=== PATIENT | female | born 2000 | race Caucasian/White ===

== ENCOUNTER 2020-10-18 14:35 | Observation (INO) ==
[2020-10-18 14:57] VITALS: BMI 32.1
[2020-10-18] MEDS ORDERED: MORPHINE SULFATE INJ 4 MG IVP ONE (15:28)
[2020-10-18] MEDS ORDERED: ZOFRAN INJ 4 MG VIAL IVP ONE (15:28)
[2020-10-18] MEDS ORDERED: ZOFRAN INJ 4 MG VIAL ONE ×2 (15:30→19:16)
[2020-10-18] MEDS ORDERED: MORPHINE SULFATE INJ 4 MG ONE (15:30)
--- NOTE | 2020-10-18 15:43 | ED.ABDFE ---
HPI Time Seen Time Seen by Provider: 10/18/20 15:28 PCP Primary Care Physician: GAIL WALTER HPI Comment HPI Comment: c/o abd pain. ongoing w/u for GB issues. s/p marginal US and HIDA. PCP asked pt to come here instead of [facility]. no gen surg referral yet. Complaint Chief Complaint:: PT C/O ABD PAIN N/V/D FOR A YEAR AND SHE HAS AN EXACERBATION FOR THE PAST 3 WEEKS ( PT WENT TO SEE PCP THIS AM AND PT WAS TOLD TO COME TO [facility]) ( PTS PAIN IS EPIGASTRIC AND UPPER SHOULDER BLADES, PTS PAIN IS CONSTANT AND BREATHING MAKES PAIN WORSE AND HE PAIN IS A 10 .. ,BR Self Treatment fo Chief Complaint: PT'S MOTHER GIVEN HX ..BR COVID-19 Coronavirus risk:travel/contact w/high risk person: No Has patient experienced Coronavirus symptoms: No Reviewed Nurses Notes Review: Yes Mode of arrival Mode of Arrival: Ambulatory Timing Onset of Chief Complaint: 10/05/20 PMH PMH Past Medical History: No Past Surgical History: No Family History History of Family Medical Conditions: No Social History Does patient currently use any type of tobacco product: No Have you used tobacco products in the last 12 months: No Type of Tobacco Use: None Does any household member use tobacco: No Alcohol Use: None Do you use any recreational Drugs:: No Lives With: Family Lives Where: Home Travel Risk Coronavirus risk:travel/contact w/high risk person: No Has patient experienced Coronavirus symptoms: No Infectious screening In the last 2 months have you had wt loss of >10#?: NO Have you had fever, night sweats or hemotysis?: No Have you traveled outside the country in the last 6 months?: No Isolation: Standard ROS Review of Systems Constitutional: No Symptoms Reported Eyes: No Symptoms Reported ENTM: No Symptoms Reported Respiratoy: No Symptoms Reported Cardiovascular: No Symptoms Reported Gastrointestinal/Abdominal: See HPI, Abdominal Pain and Nausea Genitourinary: No Symptoms Reported Neurological: No Symptoms Reported Musculoskeletal: No Symptoms Reported Integumentary: No Symptoms Reported Hematologic/Lymphatic: No Symptoms Reported Endocrine: No Symptoms Reported All Other Systems: Reviewed and Negative PE Vital Signs Vitals: Temperature 98.1 F Pulse Rate 93 Respiratory Rate 18 Blood Pressure 114/58 O2 Sat by Pulse Oximetry 98 General Limitations: No Limitations General Appearance: Alert, Anxious and In Distress Head Head Exam: Normal Inspection, Atraumatic and Normocephalic Eyes Eye exam: Normal Appearance ENT ENT Exam: Normal Exam Neck Neck Exam: Normal Inspection Respiratory Respiratory Exam: Normal Lung Sounds Bilat Abdominal Exam Abdominal Exam: Normal Inspection, Normal Bowel Sounds, Soft and Tenderness; negative Distention and Guarding Back Back Exam: Normal Inspection and Full ROM Extremeties Extremities Exam: Normal Inspection and Full ROM Neurologic Neurological Exam: Alert, Oriented X3 and CN II-XII Intact Skin Skin Exam: Warm, Dry and Intact COURSE Education/Counseling Education/Counseling: Patient and Family ROR Labs Reviewed Laboratory Results Reviewed?: Yes Result Diagrams: 10/18/20 15:36 10/18/20 15:36 Laboratory: WBC 7.4 X10^3/uL (3.6-10.0) 10/18/20 15:36 RBC 4.51 X10^6/uL (3.5-5.4) 10/18/20 15:36 Hgb 13.8 g/dL (12.0-16.0) 10/18/20 15:36 Hct 39.5 % (36.0-47.0) 10/18/20 15:36 MCV 87.5 fL (80.0-100.0) 10/18/20 15:36 MCH 30.5 pg (27.0-34.0) 10/18/20 15:36 MCHC 34.8 g/dL (33.0-35.0) 10/18/20 15:36 RDW 12.7 % (11.6-16.5) 10/18/20 15:36 Plt Count 248 X10^3/uL (150.0-450.0) 10/18/20 15:36 MPV 7.8 fL (7.4-11.0) 10/18/20 15:36 Neut % (Auto) 65.1 % (42.0-75.0) 10/18/20 15:36 Lymph % (Auto) 25.6 % (21.0-51.0) 10/18/20 15:36 [place] % (Auto) 7.4 % (0.0-13.0) 10/18/20 15:36 Eos % (Auto) 1.4 % (0.9-2.9) 10/18/20 15:36 Baso % (Auto) 0.5 % (0.2-1.0) 10/18/20 15:36 Neut # (Auto) 4.8 x10^3/uL (2.2-4.8) 10/18/20 15:36 Lymph # (Auto) 1.9 X10^3/uL (1.3-2.9) 10/18/20 15:36 [place] # (Auto) 0.5 x10^3/uL (0.3-0.8) 10/18/20 15:36 Eos # (Auto) 0.1 x10^3/uL (0.0-0.2) 10/18/20 15:36 Baso # (Auto) 0.0 X10^3/uL (0.0-0.1) 10/18/20 15:36 Absolute Nucleated RBC 0.1 /100WBC 10/18/20 15:36 Sodium 140 mmol/L (136-145) 10/18/20 15:36 Corrected Sodium TNP 10/18/20 15:36 Potassium 3.6 mmol/L (3.5-5.1) 10/18/20 15:36 Chloride 104 mmol/L (98-107) 10/18/20 15:36 Carbon Dioxide 25.2 mmol/L (21-32) 10/18/20 15:36 BUN 12 mg/dL (7-18) 10/18/20 15:36 Creatinine 0.88 mg/dL (0.55-1.02) 10/18/20 15:36 Est GFR (MDRD) Af Amer > 60 (>60) 10/18/20 15:36 Est GFR (MDRD) Non-Af > 60 (>60) 10/18/20 15:36 Glucose 80 mg/dL (65-99) 10/18/20 15:36 Calcium 9.3 mg/dL (8.5-10.1) 10/18/20 15:36 Corrected Calcium TNP 10/18/20 15:36 Total Bilirubin 0.80 mg/dL (0.2-1.0) 10/18/20 15:36 AST 56 Units/L (15-37) H 10/18/20 15:36 ALT 102 Units/L (12-78) H 10/18/20 15:36 Alkaline Phosphatase 77 Units/L (46-116) 10/18/20 15:36 Total Protein 8.0 g/dL (6.4-8.2) 10/18/20 15:36 Albumin 4.1 g/dL (3.4-5.0) 10/18/20 15:36 Globulin 3.9 g/dL (2.5-4.5) 10/18/20 15:36 Albumin/Globulin Ratio 1.1 Ratio (1.1-2.1) 10/18/20 15:36 Amylase 82 Units/L (25-115) 10/18/20 15:36 Lipase 76 Units/L (73-393) 10/18/20 15:36 HCG, Qual Negative <10 mIU/mL 10/18/20 15:36 Specimen Type Clean catch urine 10/18/20 18:48 Urine Color Yellow (YELLOW) 10/18/20 18:48 Urine Appearance Cloudy (CLEAR) 10/18/20 18:48 Urine pH 5.0 (5.0 - 8.0) 10/18/20 18:48 Ur Specific [place] 1.025 (1.000-1.030) 10/18/20 18:48 Urine Protein 2+ (NEGATIVE) 10/18/20 18:48 Urine Glucose (UA) Negative (NEGATIVE) 10/18/20 18:48 Urine Ketones 3+ (NEGATIVE) 10/18/20 18:48 Urine Occult Blood 3+ (NEGATIVE) 10/18/20 18:48 Urine Nitrite Negative (NEGATIVE) 10/18/20 18:48 Urine Bilirubin Negative (NEGATIVE) 10/18/20 18:48 Urine Urobilinogen Normal (NORMAL) 10/18/20 18:48 Ur Leukocyte Esterase 3+ (NEGATIVE) 10/18/20 18:48 Urine RBC 10-20 /HPF (0-3) A 10/18/20 18:48 Urine WBC 30-50 /HPF (0-5) A 10/18/20 18:48 Ur Squamous Epith Cells Numerous /HPF (NEGATIVE) 10/18/20 18:48 Urine Bacteria 1+ /HPF (NEGATIVE) 10/18/20 18:48 Ur Culture Indicated? Yes/culture set up 10/18/20 18:48 XRAY X-ray Results: US neg for acute process Opioid Opioid Risk Tool Age ([place]ip[place]ito box if 16-45): Yes History of Preadolescent Sexual Abuse: No Total: 1 Total Score Risk Category: Low Risk Copyright: Ayaan NEWTON predicting aberrant behaviors Procedures Procedure Comments Procedures: seen by gen surg Dr Gibbs. Admit to Dr Velarde. Diagnosis Discharge Problem: Nausea and vomiting in adult patient Instructions Forms: Precautions for COVID19 Patient Portal Social Distancing
[2020-10-18 15:45] LABS: BASOPHILS % (AUTO) 0.5 % (0.2-1.0); EOSINOPHILS # (AUTO) 0.1 x10^3/uL (0.0-0.2); EOSINOPHILS % (AUTO) 1.4 % (0.9-2.9); HEMATOCRIT 39.5 % (36.0-47.0); HEMOGLOBIN 13.8 g/dL (12.0-16.0); LYMPHOCYTES # (AUTO) 1.9 X10^3/uL (1.3-2.9); LYMPHOCYTES % (AUTO) 25.6 % (21.0-51.0); MEAN CORPUSCULAR HEMOGLOBIN 30.5 pg (27.0-34.0); MEAN CORPUSCULAR HGB CONC 34.8 g/dL (33.0-35.0); MEAN CORPUSCULAR VOLUME 87.5 fL (80.0-100.0); MEAN PLATELET VOLUME 7.8 fL (7.4-11.0); MONOCYTES # (AUTO) 0.5 x10^3/uL (0.3-0.8); MONOCYTES % (AUTO) 7.4 % (0.0-13.0); NEUTROPHILS # (AUTO) 4.8 x10^3/uL (2.2-4.8); NEUTROPHILS % (AUTO) 65.1 % (42.0-75.0); PLATELET COUNT 248 X10^3/uL (150.0-450.0); RED BLOOD COUNT 4.51 X10^6/uL (3.5-5.4); RED CELL DISTRIBUTION WIDTH 12.7 % (11.6-16.5); WHITE BLOOD COUNT 7.4 X10^3/uL (3.6-10.0)
[2020-10-18 15:59] LABS: ALANINE AMINOTRANSFERASE 102 Units/L (12-78); ALBUMIN 4.1 g/dL (3.4-5.0); ALKALINE PHOSPHATASE 77 Units/L (46-116); AMYLASE 82 Units/L (25-115); ASPARTATE AMINO TRANSFERASE 56 Units/L (15-37); BLOOD UREA NITROGEN 12 mg/dL (7-18); CALCIUM 9.3 mg/dL (8.5-10.1); CARBON DIOXIDE 25.2 mmol/L (21-32); CHLORIDE 104 mmol/L (98-107); CREATININE 0.88 mg/dL (0.55-1.02); LIPASE 76 Units/L (73-393); SODIUM 140 mmol/L (136-145); eGFR NON BLACK RACES > 60 (>60)
[2020-10-18 16:04] LABS: SERUM PREGNANCY TEST, QUAL NEGATIVE <10 mIU/mL
[2020-10-18] MEDS ORDERED: NS 1000 ML 1,000 ML ONE (16:41)
--- NOTE | 2020-10-18 17:13 | US ---
[id number] female with right upper quadrant painSTUDYLimited abdominal ultrasoundCOMPARISONNoneFINDINGSFatty changes are identified the liver. However the liver is normal s ize with no focal intrahepatic abnormality seen. Portal vein is patent with normal hepatopetal flow.G allbladder is normal appearing with no cholelithiasis, gallbladder wall thickening, or localized tend erness. Common bile duct measures 2 millimeters in diameter.Right kidney is 9 centimeters in length. No hydronephrosis, echogenic calculi, or renal mass is seen on the right.IVC and pancreas are normal appearing.IMPRESSION1. Fatty changes are identified in the liver.2. No cholelithiasis.3. Remainder of the exam is unremarkable.Electronically signed by: BRODY BENÍTEZ (Oct 18, 2020 17:11:59)
[2020-10-18] MEDS: NS 1000 ML 1,000 ML IV ONE ×2 (17:20→17:21)
[2020-10-18 18:57] LABS: BILIRUBIN,URINE NEGATIVE (NEGATIVE); BLOOD/HEMOGLOBIN,URINE 3+ (NEGATIVE); GLUCOSE, URINE NEGATIVE (NEGATIVE); KETONES,URINE 3+ (NEGATIVE); LEUKOCYTE ESTERASE ,URINE 3+ (NEGATIVE); NITRITES,URINE NEGATIVE (NEGATIVE); PROTEIN,URINE 2+ (NEGATIVE); UROBILINOGEN,URINE NORMAL (NORMAL)
[2020-10-18] MEDS ORDERED: D5 1/2 NS 1000 ML 1,000 ML IV ONE (19:18)
[2020-10-18] MEDS: D5 1/2 NS 1000 ML 1,000 ML IV SCH (19:36)
[2020-10-18] MEDS: ZOFRAN INJ 4 MG VIAL IVP PRN (19:36)
[2020-10-18 20:04] LABS: APPEARANCE,URINE CLOUDY (CLEAR); BACTERIA,URINE 1+ /HPF (NEGATIVE); COLOR,URINE YELLOW (YELLOW); SQUAMOUS EPITHELIAL CELL,UR NUMEROUS /HPF (NEGATIVE)
[2020-10-18] MEDS: DILAUDID INJ IVP PRN (21:15)
[2020-10-18] MEDS: PROTONIX INJ 40 MG VIAL IVP SCH (21:15)
[2020-10-19] MEDS: ZOFRAN INJ 4 MG VIAL IVP PRN ×5 (02:05→22:56)
[2020-10-19] MEDS: D5 1/2 NS 1000 ML 1,000 ML IV SCH ×5 (03:00→21:51)
[2020-10-19 04:53] LABS: BASOPHILS % (AUTO) 0.5 % (0.2-1.0); EOSINOPHILS # (AUTO) 0.2 x10^3/uL (0.0-0.2); EOSINOPHILS % (AUTO) 2.3 % (0.9-2.9); HEMATOCRIT 36.1 % (36.0-47.0); HEMOGLOBIN 12.1 g/dL (12.0-16.0); LYMPHOCYTES # (AUTO) 2.2 X10^3/uL (1.3-2.9); LYMPHOCYTES % (AUTO) 30.3 % (21.0-51.0); MEAN CORPUSCULAR HEMOGLOBIN 29.7 pg (27.0-34.0); MEAN CORPUSCULAR HGB CONC 33.5 g/dL (33.0-35.0); MEAN CORPUSCULAR VOLUME 88.7 fL (80.0-100.0); MEAN PLATELET VOLUME 7.8 fL (7.4-11.0); MONOCYTES # (AUTO) 0.6 x10^3/uL (0.3-0.8); MONOCYTES % (AUTO) 8.3 % (0.0-13.0); NEUTROPHILS # (AUTO) 4.3 x10^3/uL (2.2-4.8); NEUTROPHILS % (AUTO) 58.6 % (42.0-75.0); PLATELET COUNT 229 X10^3/uL (150.0-450.0); RED BLOOD COUNT 4.07 X10^6/uL (3.5-5.4); RED CELL DISTRIBUTION WIDTH 12.5 % (11.6-16.5); WHITE BLOOD COUNT 7.3 X10^3/uL (3.6-10.0)
[2020-10-19 05:03] LABS: ALANINE AMINOTRANSFERASE 81 Units/L (12-78); ALBUMIN 3.4 g/dL (3.4-5.0); ALKALINE PHOSPHATASE 62 Units/L (46-116); ASPARTATE AMINO TRANSFERASE 36 Units/L (15-37); BLOOD UREA NITROGEN 11 mg/dL (7-18); CALCIUM 8.5 mg/dL (8.5-10.1); CARBON DIOXIDE 24.7 mmol/L (21-32); CHLORIDE 106 mmol/L (98-107); CREATININE 0.78 mg/dL (0.55-1.02); SODIUM 141 mmol/L (136-145); TOTAL PROTEIN 6.6 g/dL (6.4-8.2); eGFR NON BLACK RACES > 60 (>60)
[2020-10-19] MEDS: DILAUDID INJ IVP PRN ×4 (07:22→20:53)
[2020-10-19] MEDS ORDERED: POTASSIUM CHL 40 MEQ/NS 0.45% 500 ML IV PRN (07:50)
[2020-10-19] MEDS ORDERED: POTASSIUM CHLORIDE LIQ 20 MEQ UDC PO PRN (07:50)
[2020-10-19] MEDS ORDERED: KLOR-CON PO PRN (07:50)
[2020-10-19] MEDS ORDERED: POTASSIUM CHL 60 MEQ/NS 0.45% 500 ML IV PRN (07:50)
[2020-10-19] MEDS ORDERED: K-DUR TAB 20 MEQ PO PRN (07:50)
[2020-10-19] MEDS: MICRO K EXTEN CAP 10 MEQ PO PRN ×4 (08:16→11:43)
[2020-10-19] MEDS: PROTONIX INJ 40 MG VIAL IVP SCH ×2 (08:19→20:15)
[2020-10-19] MEDS: ROCEPHIN VIAL 1 GRAM 1 G in NS 100 ML IV + SPIKE MINIBAG* 100 ML IV SCH (10:19)
--- NOTE | 2020-10-19 11:55 | DR.H&P ---
H&P - History & Physical for Day of: H&P Date: 10/18/20 - Chief Complaint Chief Complaint: ABDOMINAL PAIN, NAUSEA, VOMITING, DIARRHEA - History of Present Illness History of Present Illness: IS A 19 YEAR OLD PATIENT OF DR.LINA LAINE PAYNE. SHE PRESENTED TO THE ER WITH COMPLAINTS OF ABDOMINAL PAIN, NAUSEA, VOMITING, AND DIARRHEA. SHE REPORTS THAT SYMPTOMS HAVE BEEN PRESENT FOR THE PAST YEAR. SYMPTOMS COME AND GO. SHE HAS HAD AN EXACERBATION FOR THE PAST THREE WEEKS. ABDOMINAL PAIN IS DESCRIBED RIGHT UPPER QUADRANT AND EPIGASTRIC, CONSTANT, AND CRAMPING. IT WAS RATED A 10/10 ON ARRIVAL. PAIN RADIATES TO THE SHOULDER BLADES. SHE ALSO REPORTS SHORTNESS OF BREATH AT TIMES. SHE REPORTS HAVING A THOUROUGH GALLBLADDER WORKUP AND WAS TOLD THAT SHE HAD SLUDGE IN THE GALLBLADER, BUT HAD A NORMAL HIDA SCAN. ON ARRIVAL, VITALS WERE 98.1-93-20-98%-114/58. LABS WERE OBTAINED. ABNORMAL LAB VALUES INCLUDE THE FOLLOWING: AST 56, ALT 102. A URINALYSIS WAS OBTAINED. IT REVEALED: WBC 30-50, RBC 10-20, LEUKOCYTES 3+, BACTERIA 1+, OCCULT BLOOD 3+, KETONES 3+, PROTEIN 2+. A URINE CULTURE WAS SET UP. COVID-19 NEGATIVE. A GALLBLADDER ULTRASOUND WAS OBTAINED AND REVEALED: Fatty changes are identified the liver. However the liver is normal size with no focal intrahepatic abnormality seen. Portal vein is patent with normal hepatopetal flow. Gallbladder is normal appearing with no cholelithiasis, gallbladder wall thickening, or localized tenderness. Common bile duct measures 2 millimeters in diameter. Right kidney is 9 centimeters in length. No hydronephrosis, echogenic calculi, or renal mass is seen on the right. IVC and pancreas are normal appearing. IN THE ER, SHE WAS GIVEN MORPHINE 4MG IV X 1 DOSE, ZOFRAN 4MG IV X 1 DOSE, AND A NORMAL SALINE BOLUS. WAS CONSULTED. HE RECOMMENDS HYDRATING PATIENT AND TO PROCEED WITH AN EGD IN THE MORNING IF HER SYMPTOMS PERSIST. WE ARE IN AGREEMENT WITH PLANS. SHE WAS ADMITTED TO THE HOSPITAL FOR FURTHER EVALUATION AND TREATMENT OF INTRACTABLE ABDOMINAL PAIN, NAUSEA/VOMITING, URINARY TRACT INFECTION. SHE WAS STARTED ON D51/2NS AT 150 ML/HR, ROCEPHIN 1G IV DAILY, DILAUDID 1MG IV Q4H PRN, ZOFRAN 4MG IV Q4H PRN NAUSEA, AND PROTONIX 40MG IV BID. OTHERWISE, WE PLAN TO FOLLOW UP WI TH AM LABS AND CONTINUE TO MONITOR. TIME SPENT ON CLINICAL ASSESSMENT, REVIEWING LABS AND IMAGING, DECISION MAKING, AND DOCUMENTATION GREATER THAN 75 MINUTES. - Past Medical History Past Medical History: Anxiety, Depression Additional Medical History: PCOS - Past Surgical History Surgical History: No History - Social History Does patient currently use any type of tobacco product: No Have you used tobacco products in the last 12 months: No Type of Tobacco Use: None Does any household member use tobacco: No Alcohol Use: None Drug Use: None - Medications Home Medications: No Known Drug Allergies Allergy (Verified 10/18/20 14:48) CONTINUE taking the following medications fluoxetine [Prozac] 20 mg PO DAILY 10/18/20 [History] - Review of Systems Constitutional: Other (FOOD INTOLERANCE ) Eyes: No Symptoms Reported ENT: No Symptoms Reported Respiratory: No Symptoms Reported Cardiovascular: No Symptoms Reported Gastrointestinal: See HPI, Nausea, Vomiting, Abdominal Pain, Diarrhea Genitourinary: No Symptoms Reported Musculoskeletal: No Symptoms Reported Skin: No Symptoms Reported Neurological: No Symptoms Reported - Physical Exam Vital Signs: Temperature 98.2 F Pulse Rate [Left Radial] 77 Pulse Rate 93 Respiratory Rate 18 Blood Pressure [Left Arm] 117/68 Blood Pressure 114/58 O2 Sat by Pulse Oximetry 97 Oriented: Normal Eyes: Normal Ear: Normal Nose: Normal Throat: Normal Respiratory: Diminished Throughout Cardiovascular: Normal : Normal Auscultation: Bowel Sounds: Normal Palpation: Normal Tenderness: RUQ, Epigastric, Moderate Skin: Normal Musculoskeletal: Normal Psychiatric: Normal Mood Description: Calm Affect: Normal Speech Pattern: Clear - Assessment/Plan (1) Intractable abdominal pain Status: Acute Plan: ADMIT, D51/2NS AT 150 ML/HR, ROCEPHIN 1G IV DAILY, DILAUDID 1MG IV Q4H PRN, ZOFRAN 4MG IV Q4H PRN NAUSEA, AND PROTONIX 40MG IV BID, SURGICAL CONSULT (2) Urinary tract infection Qualifiers: Urinary tract infection type: acute cystitis Hematuria presence: with hematuria Qualified Code(s): N30.01 - Acute cystitis with hematuria Status: Acute (3) Nausea and vomiting in adult patient Status: Acute - Allergies Allergies/Adverse Reactions: Allergies Allergy/AdvReac Type Severity Reaction Status Date / Time No Known Drug Allergies Allergy Verified 10/18/20 14:48
[2020-10-19] MEDS ORDERED: DIPRIVAN VIAL 20 ML ONE ×2 (13:49→14:06)
[2020-10-19] MEDS ORDERED: D5 LR 1000 ML 1,000 ML IV ONE (13:50)
[2020-10-19] MEDS ORDERED: ZOFRAN INJ 4 MG VIAL IVP ONE (14:42)
[2020-10-20] MEDS: D5 1/2 NS 1000 ML 1,000 ML IV SCH ×5 (04:13→23:17)
[2020-10-20] MEDS: DILAUDID INJ IVP PRN ×3 (04:14→21:06)
[2020-10-20] MEDS: ZOFRAN INJ 4 MG VIAL IVP PRN ×4 (04:14→23:23)
[2020-10-20 05:08] LABS: BASOPHILS % (AUTO) 0.4 % (0.2-1.0); EOSINOPHILS # (AUTO) 0.2 x10^3/uL (0.0-0.2); EOSINOPHILS % (AUTO) 2.4 % (0.9-2.9); HEMOGLOBIN 12.4 g/dL (12.0-16.0); MEAN CORPUSCULAR HEMOGLOBIN 29.8 pg (27.0-34.0); MEAN CORPUSCULAR HGB CONC 33.5 g/dL (33.0-35.0); MEAN CORPUSCULAR VOLUME 89.1 fL (80.0-100.0); MEAN PLATELET VOLUME 7.8 fL (7.4-11.0); MONOCYTES # (AUTO) 0.6 x10^3/uL (0.3-0.8); NEUTROPHILS # (AUTO) 4.2 x10^3/uL (2.2-4.8); NEUTROPHILS % (AUTO) 59.2 % (42.0-75.0); PLATELET COUNT 229 X10^3/uL (150.0-450.0); RED BLOOD COUNT 4.15 X10^6/uL (3.5-5.4); RED CELL DISTRIBUTION WIDTH 12.1 % (11.6-16.5); WHITE BLOOD COUNT 7.1 X10^3/uL (3.6-10.0)
[2020-10-20 05:19] LABS: ALANINE AMINOTRANSFERASE 73 Units/L (12-78); ALBUMIN 3.4 g/dL (3.4-5.0); ALKALINE PHOSPHATASE 61 Units/L (46-116); AMYLASE 81 Units/L (25-115); ASPARTATE AMINO TRANSFERASE 30 Units/L (15-37); BLOOD UREA NITROGEN 6 mg/dL (7-18); CALCIUM 8.6 mg/dL (8.5-10.1); CHLORIDE 105 mmol/L (98-107); CREATININE 0.87 mg/dL (0.55-1.02); LIPASE 83 Units/L (73-393); SODIUM 142 mmol/L (136-145); TOTAL PROTEIN 6.8 g/dL (6.4-8.2); eGFR NON BLACK RACES > 60 (>60)
[2020-10-20] MEDS ORDERED: NS 500 ML IV 500 ML IV ONE (05:48)
[2020-10-20] MEDS: K-RIDER 10 MEQ/NS 100 ML 10 MEQ/100 ML BAG IV PRN ×2 (06:09→07:04)
[2020-10-20] MEDS: ROCEPHIN VIAL 1 GRAM 1 G in NS 100 ML IV + SPIKE MINIBAG* 100 ML IV SCH (09:16)
[2020-10-20] MEDS: PROTONIX INJ 40 MG VIAL IVP SCH ×2 (09:16→20:40)
--- NOTE | 2020-10-20 09:57 | PCM.PROG ---
Progress Note - Progress Note for Day of Date of Exam: 10/20/20 - Subjective Subjective: IS BEING TREATED FOR INTRACTABLE ABDOMINAL PAIN, NAUSEA AND VOMITING, AND A URINARY TRACT INFECTION. TOOK PATIENT TO THE OR FOR AN EGD YESTERDAY. IT REVEALED MODERATE GASTRITIS. SHE ALSO HAD SEVERAL POLYPS. A BIOPSY WAS TAKEN. SHE WAS UNABLE TO TOLERATE A FULL LIQUID DIET YESTERDAY. TODAY, SHE IS ALERT AND ORIENTED, LYING IN BED ON MORNING ROUNDS. SHE CONTINUES WITH COMPLAINTS OF RIGHT SIDED ABDOMINAL PAIN, BUT DOES REPORT MILD IMPROVEMENT SINCE YESTERDAY. ON EXAMINATION, HEART IS REGULAR IN RATE AND RHYTHM. BILATERAL LUNGS ARE CLEAR TO AUSCULTATION. ABDOMEN IS ROUND, SOFT, AND NOTED WITH RUQ TENDERNESS. HER VITALS THIS MORNING ARE: 99.0-81-18-98%-119/67. LABS WERE OBTAINED POTASSIUM IS 3.3, BUN 6. OTHERWISE, LABS ARE WITHIN NORMAL LIMITS. A URINE CULTURE IS PENDING. SHE IS CURRENTLY RECEIVING D51/2NS AT 150 ML/HR, ROCEPHIN 1G IV DAILY, DILAUDID 1MG IV Q4H PRN, ZOFRAN 4MG IV Q4H PRN NAUSEA, AND PROTONIX 40MG IV BID. HAS ORDERED AN ABDOMEN/PELVIS WITH CONTRAST TO BE DONE TODAY. OTHERWISE, WE WILL CONTINUE WITH CURRENT PLAN OF CARE. WE PLAN TO FOLLOW UP WITH AM LABS AND CONTINUE TO MONITOR. TIME SPENT ON CLINICAL ASSESSMENT, REVIEWING LABS AND IMAGING, DECISION MAKING, DOCUMENTATION WAS GREATER THAN 45 MINUTES. - Past Medical Family Social History Past Med/Fam/Surg Hx: No changes since H&P Allergies: Allergies No Known Drug Allergies Allergy (Verified 10/18/20 14:48) - Review of Systems ROS: No change since H&P - Vital Signs and I&O's Vital Signs: Temperature 99.0 F Pulse Rate [Left Radial] 81 Pulse Rate 93 Respiratory Rate 18 Blood Pressure [Left Arm] 119/67 Blood Pressure 114/58 O2 Sat by Pulse Oximetry 98 Intake and Output: Intake & Output 10/17/20 10/18/20 10/19/20 10/20/20 11:59 11:59 11:59 11:59 Intake Total 400 / 400 2029 Output Total 0 / 0 Balance 400 / 400 2029 - Physical Exam Oriented: Normal Eyes: Normal Ear: Normal Nose: Normal Throat: Normal Respiratory: Generalized, Diminished Cardiovascular: Normal : Normal Auscultation: Bowel Sounds: Normal Palpation: Normal Tenderness: RUQ, Epigastric, Moderate Skin: Normal Musculoskeletal: Normal Psychiatric: Normal Mood Description: Calm Affect: Normal Speech Pattern: Clear, Appropriate - Laboratory and Diagnostics Result Diagrams: 10/20/20 04:39 10/20/20 04:39 Labs: 10/18/20 18:48 Urine,Clean Catch Urine Culture - Final Laboratory WBC 7.1 X10^3/uL (3.6-10.0) 10/20/20 04:39 RBC 4.15 X10^6/uL (3.5-5.4) 10/20/20 04:39 Hgb 12.4 g/dL (12.0-16.0) 10/20/20 04:39 Hct 37.0 % (36.0-47.0) 10/20/20 04:39 MCV 89.1 fL (80.0-100.0) 10/20/20 04:39 MCH 29.8 pg (27.0-34.0) 10/20/20 04:39 MCHC 33.5 g/dL (33.0-35.0) 10/20/20 04:39 RDW 12.1 % (11.6-16.5) 10/20/20 04:39 Plt Count 229 X10^3/uL (150.0-450.0) 10/20/20 04:39 MPV 7.8 fL (7.4-11.0) 10/20/20 04:39 Neut % (Auto) 59.2 % (42.0-75.0) 10/20/20 04:39 Lymph % (Auto) 29.0 % (21.0-51.0) 10/20/20 04:39 [place] % (Auto) 9.0 % (0.0-13.0) 10/20/20 04:39 Eos % (Auto) 2.4 % (0.9-2.9) 10/20/20 04:39 Baso % (Auto) 0.4 % (0.2-1.0) 10/20/20 04:39 Neut # (Auto) 4.2 x10^3/uL (2.2-4.8) 10/20/20 04:39 Lymph # (Auto) 2.0 X10^3/uL (1.3-2.9) 10/20/20 04:39 [place] # (Auto) 0.6 x10^3/uL (0.3-0.8) 10/20/20 04:39 Eos # (Auto) 0.2 x10^3/uL (0.0-0.2) 10/20/20 04:39 Baso # (Auto) 0.0 X10^3/uL (0.0-0.1) 10/20/20 04:39 Absolute Nucleated RBC 0.0 /100WBC 10/20/20 04:39 Sodium 142 mmol/L (136-145) 10/20/20 04:39 Corrected Sodium TNP 10/20/20 04:39 Potassium 3.3 mmol/L (3.5-5.1) L 10/20/20 04:39 Chloride 105 mmol/L (98-107) 10/20/20 04:39 Carbon Dioxide 27.0 mmol/L (21-32) 10/20/20 04:39 BUN 6 mg/dL (7-18) L 10/20/20 04:39 Creatinine 0.87 mg/dL (0.55-1.02) 10/20/20 04:39 Est GFR (MDRD) Af Amer > 60 (>60) 10/20/20 04:39 Est GFR (MDRD) Non-Af > 60 (>60) 10/20/20 04:39 Glucose 98 mg/dL (65-99) 10/20/20 04:39 Calcium 8.6 mg/dL (8.5-10.1) 10/20/20 04:39 Corrected Calcium TNP 10/20/20 04:39 Magnesium 1.9 mg/dL (1.7-2.9) 10/19/20 04:30 Total Bilirubin 0.70 mg/dL (0.2-1.0) 10/20/20 04:39 AST 30 Units/L (15-37) 10/20/20 04:39 ALT 73 Units/L (12-78) 10/20/20 04:39 Alkaline Phosphatase 61 Units/L (46-116) 10/20/20 04:39 Total Protein 6.8 g/dL (6.4-8.2) 10/20/20 04:39 Albumin 3.4 g/dL (3.4-5.0) 10/20/20 04:39 Globulin 3.4 g/dL (2.5-4.5) 10/20/20 04:39 Albumin/Globulin Ratio 1.0 Ratio (1.1-2.1) L 10/20/20 04:39 Amylase 81 Units/L (25-115) 10/20/20 04:39 Lipase 83 Units/L (73-393) 10/20/20 04:39 HCG, Qual Negative <10 mIU/mL 10/18/20 15:36 Specimen Type Clean catch urine 10/18/20 18:48 Urine Color Yellow (YELLOW) 10/18/20 18:48 Urine Appearance Cloudy (CLEAR) 10/18/20 18:48 Urine pH 5.0 (5.0 - 8.0) 10/18/20 18:48 Ur Specific [place] 1.025 (1.000-1.030) 10/18/20 18:48 Urine Protein 2+ (NEGATIVE) 10/18/20 18:48 Urine Glucose (UA) Negative (NEGATIVE) 10/18/20 18:48 Urine Ketones 3+ (NEGATIVE) 10/18/20 18:48 Urine Occult Blood 3+ (NEGATIVE) 10/18/20 18:48 Urine Nitrite Negative (NEGATIVE) 10/18/20 18:48 Urine Bilirubin Negative (NEGATIVE) 10/18/20 18:48 Urine Urobilinogen Normal (NORMAL) 10/18/20 18:48 Ur Leukocyte Esterase 3+ (NEGATIVE) 10/18/20 18:48 Urine RBC 10-20 /HPF (0-3) A 10/18/20 18:48 Urine WBC 30-50 /HPF (0-5) A 10/18/20 18:48 Ur Squamous Epith Cells Numerous /HPF (NEGATIVE) 10/18/20 18:48 Urine Bacteria 1+ /HPF (NEGATIVE) 10/18/20 18:48 Ur Culture Indicated? Yes/culture set up 10/18/20 18:48 SARS CoV-2 RNA Rapid RAMONA Negative (NEGATIVE) 10/18/20 19:25 Tissue Pathology To follow 10/19/20 14:05 - Plan (1) Intractable abdominal pain Status: Acute Plan: ABDOMEN/PELVIS CT WITH CONTRAST. D51/2NS AT 150 ML/HR, ROCEPHIN 1G IV DAILY, DILAUDID 1MG IV Q4H PRN, ZOFRAN 4MG IV Q4H PRN NAUSEA, AND PROTONIX 40MG IV BID, SURGICAL CONSULT (2) Urinary tract infection Status: Acute Qualifiers: Urinary tract infection type: acute cystitis Hematuria presence: with hematuria Qualified Code(s): N30.01 - Acute cystitis with hematuria (3) Nausea and vomiting in adult patient Status: Acute
[2020-10-20] MEDS ORDERED: NS 100 ML IV 100 ML IV ONE (12:19)
--- NOTE | 2020-10-20 14:09 | CT ---
HISTORYSEVERE ABDOMINAL PAIN, N/VSTUDYABDOMEN/PELVIS WITH CONCOMPARISONNoneTECHNIQUEMultiple CT axial images of the abdomen and pelvis were obtained with IV contrast. Coronal and sagittal images were reconstructed. Dose reduction techniques included Automated Exposure Control (AEC) and adjustment of mA and kV.FINDINGSThe lung bases are clear. Heart size is normal.The liver is normal in size and configuration. The gallbladder has no inflammation around it. The spleen is normal in size and shape.The adrenal glands are normal. The pancreas is normal.Renal enhancement is symmetric with no solid mass. No abnormal calcification is present. There is no hydronephrosis or significant perirenal edema. The ureters are not dilated. The bladder is normally distended. It has no wall thickening or perivesical edema.The bowel is not dilated. There is no wall thickening in the bowel or edema around the bowel. A normal appendix is not identified. But there is no inflammation around the cecum or at the expected location of the appendix.Small amount of pelvic free fluid is present. This might be physiologic. Involuting left ovarian follicle measures 16 mm.Uterus is anteverted in position. No significant bone abnormality.IMPRESSION1. Small amount pelvic free fluid, probably physiologic2. Otherwise no acute findingElectronically signed by: Pineda Chapman (Oct 20, 2020 14:07:06)
[2020-10-20] MEDS ORDERED: ATIVAN INJ 2 MG VIAL IVP PRN (14:35)
[2020-10-20] MEDS ORDERED: PEPCID 20 MG IV PREMIX* 20 MG/50 ML BAG IV ONE (16:31)
[2020-10-20] MEDS ORDERED: LR 1000 ML IV 1,000 ML IV ONE ×2 (16:31→16:48)
[2020-10-20] MEDS ORDERED: ANCEF 1 GRAM IV PREMIX* 1 G/50 ML BAG IV ONE (16:43)
[2020-10-20] MEDS ORDERED: DILAUDID INJ ONE (16:47)
[2020-10-20] MEDS ORDERED: FENTANYL INJ 100 mcg ONE (16:47)
[2020-10-20] MEDS ORDERED: BRIDION ONE (16:47)
[2020-10-20] MEDS ORDERED: DECADRON INJ ONE (16:47)
[2020-10-20] MEDS ORDERED: OFIRMEV IV 1000 MG VIAL 1,000 MG/100 ML VIAL IV ONE (16:48)
[2020-10-20] MEDS ORDERED: ZEMURON 50 MG VIAL ONE (16:54)
[2020-10-20] MEDS ORDERED: VERSED ONE (16:54)
[2020-10-20] MEDS ORDERED: ZOFRAN INJ 4 MG VIAL ONE (16:54)
[2020-10-20] MEDS ORDERED: KETALAR ONE (16:54)
[2020-10-20] MEDS ORDERED: DIPRIVAN VIAL ONE (16:54)
[2020-10-20] MEDS ORDERED: ROBINUL ONE (16:54)
[2020-10-20] MEDS ORDERED: LACRI-LUBE S.O.P. ONE (16:54)
[2020-10-20] MEDS ORDERED: ULTANE GAS IN ONE (16:54)
[2020-10-20] MEDS ORDERED: TORADOL 30 MG VIAL ONE (16:54)
[2020-10-20] MEDS ORDERED: REGLAN INJ 10 MG VIAL ONE (16:54)
[2020-10-20] MEDS ORDERED: XYLOCAINE 2 % (PLAIN) ONE (16:54)
[2020-10-20] MEDS ORDERED: BACTROBAN TOPICAL OINT ONE (17:32)
[2020-10-20] MEDS ORDERED: ZOFRAN INJ 4 MG VIAL IVP PRN (18:04)
[2020-10-20] MEDS ORDERED: BENADRYL INJ 50 MG VIAL IVP PRN (18:04)
[2020-10-20] MEDS ORDERED: DILAUDID INJ IVP PRN (18:04)
[2020-10-20] MEDS ORDERED: PHENERGAN INJ 25 MG IM PRN (18:04)
[2020-10-21] MEDS: DILAUDID INJ IVP PRN ×4 (00:35→12:43)
[2020-10-21] MEDS: D5 1/2 NS 1000 ML 1,000 ML IV SCH ×3 (02:07→10:10)
[2020-10-21] MEDS: ZOFRAN INJ 4 MG VIAL IVP PRN ×3 (04:01→12:42)
[2020-10-21 05:31] LABS: BASOPHILS % (AUTO) 0.1 % (0.2-1.0); HEMATOCRIT 37.7 % (36.0-47.0); HEMOGLOBIN 12.7 g/dL (12.0-16.0); LYMPHOCYTES # (AUTO) 0.9 X10^3/uL (1.3-2.9); LYMPHOCYTES % (AUTO) 9.5 % (21.0-51.0); MEAN CORPUSCULAR HEMOGLOBIN 29.8 pg (27.0-34.0); MEAN CORPUSCULAR HGB CONC 33.7 g/dL (33.0-35.0); MEAN CORPUSCULAR VOLUME 88.5 fL (80.0-100.0); MONOCYTES # (AUTO) 0.3 x10^3/uL (0.3-0.8); MONOCYTES % (AUTO) 2.9 % (0.0-13.0); NEUTROPHILS % (AUTO) 87.5 % (42.0-75.0); PLATELET COUNT 267 X10^3/uL (150.0-450.0); RED BLOOD COUNT 4.27 X10^6/uL (3.5-5.4); RED CELL DISTRIBUTION WIDTH 12.4 % (11.6-16.5); WHITE BLOOD COUNT 9.2 X10^3/uL (3.6-10.0)
[2020-10-21 05:38] LABS: ALANINE AMINOTRANSFERASE 73 Units/L (12-78); ALBUMIN 3.8 g/dL (3.4-5.0); ALKALINE PHOSPHATASE 71 Units/L (46-116); ASPARTATE AMINO TRANSFERASE 26 Units/L (15-37); BLOOD UREA NITROGEN 4 mg/dL (7-18); CALCIUM 9.2 mg/dL (8.5-10.1); CARBON DIOXIDE 25.6 mmol/L (21-32); CHLORIDE 103 mmol/L (98-107); COR NA(FOR HYPERGLY) 141 mmol/L (136-145); CREATININE 0.76 mg/dL (0.55-1.02); SODIUM 140 mmol/L (136-145); TOTAL PROTEIN 7.6 g/dL (6.4-8.2); eGFR NON BLACK RACES > 60 (>60)
[2020-10-21] MEDS: ROCEPHIN VIAL 1 GRAM 1 G in NS 100 ML IV + SPIKE MINIBAG* 100 ML IV SCH (08:35)
[2020-10-21] MEDS: PROTONIX INJ 40 MG VIAL IVP SCH (08:36)
[2020-10-21] MEDS ORDERED: PROzac PO SCH (09:00)
[2020-10-21 12:30] VITALS: BP 113/55
== END 2020-10-21 15:45 | disposition home or self-care (01) ==
LOC: MED/SURG 14:46 → ER 14:46 → MED/SURG 20:31
PROVIDERS: ADMIT Internal Medicine; ATTEND Internal Medicine
DX: R10.11 Right upper quadrant pain; Z20.822 Contact with and (suspected) exposure to COVID-19; K29.60 Other gastritis without bleeding; N30.01 Acute cystitis with hematuria; R10.13 Epigastric pain; K31.7 Polyp of stomach and duodenum; R06.02 Shortness of breath; R11.2 Nausea with vomiting, unspecified